=== PATIENT | female | born 1965 | race Caucasian/White ===

== ENCOUNTER 2018-05-27 06:05 | Day surgery (SDC) | payer OTHER ==
[~2018-05-27 06:05] MED LIST: CATAFLAN PO; CLONAZEPAM2 MG PO; LIPITOR40 MG PO; PROZAC20 MG PO; RESTORIL30 M1 PO
== END 2018-05-27 17:10 | disposition home or self-care (01) ==
LOC: CIR.AMB 06:05
DX: N20.0 Calculus of kidney (principal)

== ENCOUNTER 2018-07-22 06:05 | Day surgery (SDC) | payer OTHER | END 2018-07-22 16:10 | disposition home or self-care (01) | LOC: CIR.AMB 06:05 | DX: N20.0 Calculus of kidney (principal) ==

== ENCOUNTER 2019-02-12 15:14 | Inpatient (IN) | payer OTHER ==
[~2019-02-12] VITALS: Ht 157.5 cm; Wt 83.5 kg
[2019-02-12] MEDS ORDERED: AMBIEN5 MG (15:27)
--- NOTE | 2019-02-12 15:27 | NUR ---
SE RECIBE PACIENTE ALERTA Y ORIENTADA REFIERE TENER DOLOR PELVICO DESDE ANOCHE. INDICA TENER UN CATETER QUE LE COLOCO DR. JOYCE SANTOS.
--- NOTE | 2019-02-12 15:52 | NUR ---
SE ORIENTA A PTE SOBRE PROCESO DE ADMINISTRACION DE MED IM Y ESTUDIOS A REALIZAR Y MUESTRAS DE LAB.
--- NOTE | 2019-02-12 18:11 | NUR ---
SE LLAMA A BANCO DE ARIAN NUEVAMMENTE TELEFONOS DE UNIDAD SE ENCUENTRAN OCUPADOS A EL MOMENTO SE HACEN VARIOS INTENTOS LOS CUALES NO SE LOGRA CONTACTAR CON LOS MISMOS.
--- NOTE | 2019-02-12 18:20 | NUR ---
SE NOTIFICA A BANCO DE ARIAN SOBRE UNIDAD DE PRBC ON HOLD SE NOTIFICA AT 6:21PM A LEESA.
[2019-02-14] MEDS ORDERED: DICLOFENAC SODI50 MG PO (11:35)
== END 2019-02-17 10:02 | disposition home or self-care (01) | DRG 660 ==
LOC: ER 15:14 → SURH 16:57
PROVIDERS: ADMIT Urology
PROC: 0TC18ZZ Extirpation of Matter from Left Kidney, Via Natural or Artificial Opening Endoscopic (ICD-10-PCS; principal; 2019-02-13 17:15)
PROC: BW21ZZZ Computerized Tomography (CT Scan) of Abdomen and Pelvis (ICD-10-PCS; 2019-02-14)
PROC: 0T778DZ Dilation of Left Ureter with Intraluminal Device, Via Natural or Artificial Opening Endoscopic (ICD-10-PCS; 2019-02-16)
DX: N20.0 Calculus of kidney (principal); J90 Pleural effusion, not elsewhere classified; N12 Tubulo-interstitial nephritis, not specified as acute or chronic; N21.0 Calculus in bladder; E86.0 Dehydration; E87.8 Other disorders of electrolyte and fluid balance, not elsewhere classified; B95.4 Other streptococcus as the cause of diseases classified elsewhere